=== PATIENT | female | born 1980 | race Hispanic/Latino ===

== ENCOUNTER 2020-08-05 12:53 | Inpatient (IN) | payer MEDICARE, OTHER ==
[~2020-08-05] VITALS: Ht 170.2 cm; Wt 264.7 kg
[2020-08-05 13:23] LABS: BASOPHILS % 0.3 % (0.0-1.0); EOSINOPHILS # (AUTO) 0.2 (0.0-0.4); EOSINOPHILS % 3.3 % (0.0-6.0); HEMATOCRIT 31.2 % (34.2-44.1); HEMOGLOBIN 9.1 g/dL (12.0-16.0); LYMPHOCYTES # (AUTO) 1.4 (1.0-3.2); LYMPHOCYTES % 21.6 % (18.0-39.1); MEAN CORPUSCULAR HEMOGLOBIN 30.4 pg (28-32); MEAN CORPUSCULAR HGB CONC 29.2 g/dL (31-35); MEAN CORPUSCULAR VOLUME 104.3 fL (81-99); MONOCYTES # (AUTO) 0.4 (0.2-0.8); MONOCYTES % 6.1 % (4.4-11.3); NEUTROPHILS # (AUTO) 4.5 (2.1-6.9); NEUTROPHILS % 68.1 % (38.7-80.0); PLATELET COUNT 151 x10e3/uL (140-360); RED BLOOD COUNT 2.99 x10e6/uL (3.6-5.1)
[2020-08-05 13:44] LABS: ALBUMIN 1.9 g/dL (3.5-5.0); ALBUMIN/GLOBULIN RATIO 0.5 (0.8-2.0); ANION GAP 14.2 mmol/L (8-16); CALCIUM 7.2 mg/dL (8.4-10.2); CREATININE, SERUM 4.53 mg/dL (0.57-1.11); MAGNESIUM 1.7 MG/DL (1.3-2.1)
[2020-08-05 13:47] LABS: POTASSIUM 6.2 mmol/L (3.5-5.1)
[2020-08-05] MEDS ORDERED: DEXTROSE 50% SYRINGE 50 ML IV STA (13:55)
[2020-08-05] MEDS ORDERED: SODIUM BICARBONATE 8.4% 50 ML VIAL IV STA (13:55)
[2020-08-05] MEDS ORDERED: SODIUM BICARBONATE 8.4% INJ 50 ML SYR IV ONE (14:00)
[2020-08-05] MEDS ORDERED: CALCIUM GLUCONATE 10% INJ 4.65 MEQ in SODIUM CHLORIDE 0.9% 50ML 50 ML IV ONE (14:00)
[2020-08-05] MEDS ORDERED: INSULIN REGULAR, HUMAN 100 UNIT/1 ML 3ML VIAL IV ONE (14:00)
[2020-08-05 14:42] LABS: CLARITY,URINE CLEAR (CLEAR); COLOR,URINE YELLOW (YELLOW); KETONES,URINE NEGATIVE (NEGATIVE); LEUKOCYTE ESTERASE ,URINE NEGATIVE (NEGATIVE); NITRITE,URINE NEGATIVE (NEGATIVE); PROTEIN,URINE DIPSTICK >=300 (NEGATIVE); URINE UROBILINOGEN 0.2 mg/dL (0.2 - 1)
[2020-08-05 14:53] LABS: BACTERIA,URINE MODERATE /HPF; EPITHELIAL CELLS,URINE MANY /LPF; WBC,URINE (MAN) 0-5 /HPF (0-5)
[2020-08-05] MEDS ORDERED: LIDOCAINE HCL 1% LOCAL INJ 20 ML VIAL ONE (15:19)
[2020-08-05] MEDS ORDERED: HEPARIN SOD (PORCINE) 1000 UNIT/ML SDV ONE (15:25)
[2020-08-05] MEDS ORDERED: SODIUM CHLORIDE 0.9% 250ML 500 ML IV PRN (16:30)
[2020-08-05] MEDS ORDERED: SODIUM CHLORIDE 0.9% 1000ML 2,000 ML IV PRN (16:30)
[2020-08-05] MEDS ORDERED: HEPARIN SOD (PORCINE) 1000 UNIT/ML SDV IV PRN (16:30)
[2020-08-05] MEDS ORDERED: MANNITOL 25% 12.5GM/50 ML VIAL IV PRN (16:30)
[2020-08-05 19:32] LABS: CREATINE KINASE MB 4.6 ng/mL (0-5.0)
[2020-08-05 20:00] VITALS: BP 154/74
[2020-08-05] MEDS: HYDRALAZINE HCL 25 MG TAB PO SCH (20:39)
[2020-08-05] MEDS ORDERED: SERTRALINE HCL100 MG PO (20:54)
[2020-08-05] MEDS ORDERED: CARVEDILOL12.5 MG PO (20:54)
[2020-08-05] MEDS ORDERED: DOXAZOSIN MESYLA2 MG PO (20:54)
[2020-08-05] MEDS ORDERED: AMLODIPINE BESY10 MG PO (20:54)
[2020-08-05] MEDS ORDERED: LOSARTAN POTAS100 MG PO (20:54)
[2020-08-05 21:00] VITALS: BP 200/83
[2020-08-05] MEDS ORDERED: DEXTROSE 5% 1,000 ML IV ONE (21:38)
[2020-08-05] MEDS ORDERED: SODIUM BICARBONATE 8.4% SYRING 50 ML ONE (21:38)
[2020-08-05] MEDS ORDERED: SODIUM BICARBONATE 8.4% SYRING 100 ML ONE (22:20)
[2020-08-05 22:21] VITALS: BP 203/74
[2020-08-05] MEDS: AMLODIPINE BESYLATE 10 MG TAB PO SCH (22:25)
[2020-08-05] MEDS: CARVEDILOL 12.5 MG TAB PO SCH (22:25)
[2020-08-05] MEDS: DOXAZOSIN MESYLATE 2 MG TAB PO SCH (22:25)
[2020-08-05 22:30] VITALS: BP 203/74
[2020-08-05] MEDS: SODIUM BICARBONATE 8.4% 150 ML in DEXTROSE 5% 1,000 ML IV SCH (22:40)
[2020-08-06] VITALS (8 sets, daily range): BP systolic 133–165; BP diastolic 48–68
[2020-08-06 06:04] LABS: BASOPHILS % 0.2 % (0.0-1.0); EOSINOPHILS # (AUTO) 0.3 (0.0-0.4); EOSINOPHILS % 4.6 % (0.0-6.0); HEMATOCRIT 25.4 % (34.2-44.1); HEMOGLOBIN 7.7 g/dL (12.0-16.0); LYMPHOCYTES # (AUTO) 1.5 (1.0-3.2); LYMPHOCYTES % 26.7 % (18.0-39.1); MEAN CORPUSCULAR HEMOGLOBIN 30.7 pg (28-32); MEAN CORPUSCULAR HGB CONC 30.3 g/dL (31-35); MEAN CORPUSCULAR VOLUME 101.2 fL (81-99); MONOCYTES # (AUTO) 0.5 (0.2-0.8); MONOCYTES % 8.4 % (4.4-11.3); NEUTROPHILS # (AUTO) 3.4 (2.1-6.9); NEUTROPHILS % 59.7 % (38.7-80.0); PLATELET COUNT 132 x10e3/uL (140-360); RED BLOOD COUNT 2.51 x10e6/uL (3.6-5.1)
[2020-08-06 06:21] LABS: ALBUMIN 1.6 g/dL (3.5-5.0); ALBUMIN/GLOBULIN RATIO 0.6 (0.8-2.0); ANION GAP 10.1 mmol/L (8-16); CREATININE, SERUM 3.6 mg/dL (0.57-1.11); POTASSIUM 5.1 mmol/L (3.5-5.1)
[2020-08-06 06:42] LABS: CREATINE KINASE MB 3.2 ng/mL (0-5.0)
[2020-08-06] MEDS: HYDRALAZINE HCL 25 MG TAB PO SCH ×3 (09:00→21:10)
[2020-08-06] MEDS: CARVEDILOL 12.5 MG TAB PO SCH ×2 (09:00→17:00)
[2020-08-06] MEDS ORDERED: LOSARTAN POTASSIUM 100 MG TAB PO SCH (09:00)
[2020-08-06] MEDS: SERTRALINE HCL 100 MG TAB PO SCH (09:00)
[2020-08-06 14:40] LABS: CREATINE KINASE MB 3.5 ng/mL (0-5.0)
[2020-08-06] MEDS: SODIUM BICARBONATE 650 MG TAB PO SCH (17:00)
[2020-08-06] MEDS: DOXAZOSIN MESYLATE 2 MG TAB PO SCH (21:10)
[2020-08-06] MEDS: AMLODIPINE BESYLATE 10 MG TAB PO SCH (21:10)
[2020-08-06] MEDS: ONDANSETRON HCL INJ 2MG/ML 2ML 2 MG/ML VIAL IV PRN (22:22)
[2020-08-06] MEDS ORDERED: SODIUM BICARBONATE 8.4% SYRING 150 ML ONE (22:55)
[2020-08-06] MEDS ORDERED: DEXTROSE 5% 1,000 ML IV ONE (22:55)
[2020-08-06] MEDS: SODIUM BICARBONATE 8.4% 150 ML in DEXTROSE 5% 1,000 ML IV SCH (23:06)
[2020-08-07] VITALS (9 sets, daily range): BP systolic 126–151; BP diastolic 52–78
[2020-08-07] MEDS: SODIUM BICARBONATE 8.4% 150 ML in DEXTROSE 5% 1,000 ML IV SCH ×2 (00:18→17:00)
[2020-08-07 06:53] LABS: BASOPHILS % 0.2 % (0.0-1.0); EOSINOPHILS # (AUTO) 0.2 (0.0-0.4); EOSINOPHILS % 4.3 % (0.0-6.0); HEMATOCRIT 25.8 % (34.2-44.1); HEMOGLOBIN 7.8 g/dL (12.0-16.0); LYMPHOCYTES # (AUTO) 1.4 (1.0-3.2); LYMPHOCYTES % 25.6 % (18.0-39.1); MEAN CORPUSCULAR HEMOGLOBIN 30.4 pg (28-32); MEAN CORPUSCULAR HGB CONC 30.2 g/dL (31-35); MEAN CORPUSCULAR VOLUME 100.4 fL (81-99); MONOCYTES # (AUTO) 0.4 (0.2-0.8); MONOCYTES % 7.8 % (4.4-11.3); NEUTROPHILS # (AUTO) 3.3 (2.1-6.9); NEUTROPHILS % 61.7 % (38.7-80.0); PLATELET COUNT 132 x10e3/uL (140-360); RED BLOOD COUNT 2.57 x10e6/uL (3.6-5.1)
[2020-08-07 07:16] LABS: ANION GAP 9.6 mmol/L (8-16); CREATININE, SERUM 3.09 mg/dL (0.57-1.11); POTASSIUM 4.6 mmol/L (3.5-5.1)
[2020-08-07 07:27] LABS: CALCIUM 6.9 mg/dL (8.4-10.2)
[2020-08-07] MEDS: HYDRALAZINE HCL 25 MG TAB PO SCH ×3 (09:22→21:08)
[2020-08-07] MEDS: CALCIUM CARBONATE 500 MG CHEWABLE TABS PO SCH ×2 (09:22→17:10)
[2020-08-07] MEDS: CARVEDILOL 12.5 MG TAB PO SCH ×2 (09:22→17:10)
[2020-08-07] MEDS: CALCITRIOL 0.25 MCG CAP PO SCH (09:22)
[2020-08-07] MEDS: SODIUM BICARBONATE 650 MG TAB PO SCH ×2 (09:22→17:10)
[2020-08-07] MEDS: SERTRALINE HCL 100 MG TAB PO SCH (09:22)
[2020-08-07] MEDS: ACETAMINOPHEN 325 MG TAB PO PRN ×2 (11:30→23:55)
[2020-08-07] MEDS: ONDANSETRON HCL INJ 2MG/ML 2ML 2 MG/ML VIAL IV PRN (18:59)
[2020-08-07] MEDS: AMLODIPINE BESYLATE 10 MG TAB PO SCH (21:08)
[2020-08-07] MEDS: DOXAZOSIN MESYLATE 2 MG TAB PO SCH (21:08)
[2020-08-08] VITALS (8 sets, daily range): BP systolic 121–149; BP diastolic 48–73
[2020-08-08 05:44] LABS: BASOPHILS % 0.2 % (0.0-1.0); EOSINOPHILS # (AUTO) 0.3 (0.0-0.4); EOSINOPHILS % 4.4 % (0.0-6.0); HEMATOCRIT 24.5 % (34.2-44.1); HEMOGLOBIN 7.3 g/dL (12.0-16.0); LYMPHOCYTES # (AUTO) 1.5 (1.0-3.2); LYMPHOCYTES % 25.3 % (18.0-39.1); MEAN CORPUSCULAR HEMOGLOBIN 30.3 pg (28-32); MEAN CORPUSCULAR HGB CONC 29.8 g/dL (31-35); MEAN CORPUSCULAR VOLUME 101.7 fL (81-99); MONOCYTES # (AUTO) 0.6 (0.2-0.8); MONOCYTES % 9.5 % (4.4-11.3); NEUTROPHILS # (AUTO) 3.6 (2.1-6.9); NEUTROPHILS % 59.9 % (38.7-80.0); PLATELET COUNT 126 x10e3/uL (140-360); RED BLOOD COUNT 2.41 x10e6/uL (3.6-5.1)
[2020-08-08 06:03] LABS: ANION GAP 10.5 mmol/L (8-16); CREATININE, SERUM 3.45 mg/dL (0.57-1.11); POTASSIUM 4.5 mmol/L (3.5-5.1)
[2020-08-08 06:06] LABS: CALCIUM 6.8 mg/dL (8.4-10.2)
[2020-08-08] MEDS ORDERED: CALCIUM GLUCONATE 10% INJ 4.65 MEQ in SODIUM CHLORIDE 0.9% 50ML 50 ML IV ONE (07:30)
[2020-08-08] MEDS: CARVEDILOL 12.5 MG TAB PO SCH ×2 (09:00→17:10)
[2020-08-08] MEDS: SERTRALINE HCL 100 MG TAB PO SCH (09:00)
[2020-08-08] MEDS: SODIUM BICARBONATE 650 MG TAB PO SCH ×2 (09:00→17:10)
[2020-08-08] MEDS: HYDRALAZINE HCL 25 MG TAB PO SCH ×3 (09:00→21:17)
[2020-08-08] MEDS: CALCITRIOL 0.25 MCG CAP PO SCH (09:00)
[2020-08-08] MEDS: CALCIUM CARBONATE 500 MG CHEWABLE TABS PO SCH ×2 (09:00→17:10)
[2020-08-08] MEDS: ONDANSETRON HCL INJ 2MG/ML 2ML 2 MG/ML VIAL IV PRN (12:45)
[2020-08-08 20:14] LABS: CLARITY,URINE HAZY (CLEAR); COLOR,URINE AMBER (YELLOW); LEUKOCYTE ESTERASE ,URINE NEGATIVE (NEGATIVE); NITRITE,URINE NEGATIVE (NEGATIVE); PROTEIN,URINE DIPSTICK >=300 (NEGATIVE)
[2020-08-08 20:15] LABS: KETONES,URINE NEGATIVE (NEGATIVE); URINE UROBILINOGEN 0.2 mg/dL (0.2 - 1)
[2020-08-08 20:24] LABS: BACTERIA,URINE MODERATE /HPF; EPITHELIAL CELLS,URINE MODERATE /LPF
[2020-08-08 20:53] LABS: CREATININE,URINE RANDOM 82.63 mg/dL (47-110)
[2020-08-08 21:14] LABS: TOTAL PROTEIN, URINE 815.7 mg/dL (1-14)
[2020-08-08] MEDS: DOXAZOSIN MESYLATE 2 MG TAB PO SCH (21:17)
[2020-08-08] MEDS: AMLODIPINE BESYLATE 10 MG TAB PO SCH (21:18)
[2020-08-08] MEDS: MELATONIN 5 MG TABLET PO SCH (23:14)
[2020-08-09] VITALS (7 sets, daily range): BP systolic 53–135; BP diastolic 54–83
[2020-08-09 08:42] LABS: ANION GAP 10.1 mmol/L (8-16); CREATININE, SERUM 3.14 mg/dL (0.57-1.11); POTASSIUM 4.1 mmol/L (3.5-5.1)
[2020-08-09 08:49] LABS: CALCIUM 5.9 mg/dL (8.4-10.2)
[2020-08-09] MEDS ORDERED: DEXTROSE 5%/0.225% SOD CHL 1,000 ML IV ONE (10:30)
[2020-08-09] MEDS: CALCIUM CARBONATE 500 MG CHEWABLE TABS PO SCH ×2 (10:55→18:26)
[2020-08-09] MEDS: SODIUM BICARBONATE 650 MG TAB PO SCH ×2 (10:55→18:26)
[2020-08-09] MEDS: CARVEDILOL 12.5 MG TAB PO SCH ×2 (10:55→18:26)
[2020-08-09] MEDS: CALCITRIOL 0.25 MCG CAP PO SCH (10:55)
[2020-08-09] MEDS: HYDRALAZINE HCL 25 MG TAB PO SCH ×3 (10:55→20:53)
[2020-08-09] MEDS: SERTRALINE HCL 100 MG TAB PO SCH (10:55)
[2020-08-09 11:03] LABS: % IRON SATURATION 16 % (15-50); IRON 24 ug/dL (50-170); TOTAL IRON BINDING CAPACITY 154 ug/dL (261-478); TRANSFERRIN 110 mg/dL (180-382)
[2020-08-09] MEDS: ONDANSETRON HCL INJ 2MG/ML 2ML 2 MG/ML VIAL IV PRN (15:14)
[2020-08-09] MEDS: DOXAZOSIN MESYLATE 2 MG TAB PO SCH (20:53)
[2020-08-09] MEDS: MELATONIN 5 MG TABLET PO SCH (20:53)
[2020-08-09] MEDS: AMLODIPINE BESYLATE 10 MG TAB PO SCH (20:53)
[2020-08-09] MEDS: ACETAMINOPHEN 325 MG TAB PO PRN (20:53)
[2020-08-10] VITALS (8 sets, daily range): BP systolic 106–144; BP diastolic 45–69
[2020-08-10 06:06] LABS: ALBUMIN 1.7 g/dL (3.5-5.0); ALBUMIN/GLOBULIN RATIO 0.6 (0.8-2.0); CALCIUM 7.1 mg/dL (8.4-10.2); CREATININE, SERUM 4.35 mg/dL (0.57-1.11)
[2020-08-10] MEDS: CARVEDILOL 12.5 MG TAB PO SCH ×2 (09:00→16:28)
[2020-08-10] MEDS: HYDRALAZINE HCL 25 MG TAB PO SCH ×3 (09:00→21:42)
[2020-08-10] MEDS: CALCITRIOL 0.25 MCG CAP PO SCH (09:10)
[2020-08-10] MEDS: SERTRALINE HCL 100 MG TAB PO SCH (09:10)
[2020-08-10] MEDS: CALCIUM CARBONATE 500 MG CHEWABLE TABS PO SCH ×2 (09:10→16:28)
[2020-08-10] MEDS: SODIUM BICARBONATE 650 MG TAB PO SCH ×2 (09:10→16:28)
[2020-08-10] MEDS: ACETAMINOPHEN 325 MG TAB PO PRN ×2 (10:45→22:26)
[2020-08-10] MEDS: IRON SUCROSE 100 MG in SODIUM CHLORIDE 0.9% 100 ML 100 ML IV SCH (16:26)
[2020-08-10 17:08] LABS: CALCIUM 7.3 mg/dL (8.4-10.2); CREATININE, SERUM 4.59 mg/dL (0.57-1.11)
[2020-08-10] MEDS ORDERED: MELATONIN 5 MG TABLET PO PRN (20:15)
[2020-08-10] MEDS ORDERED: HYDRALAZINE HCL 20 MG/ML VIAL IV PRN (20:15)
[2020-08-10] MEDS: MELATONIN 5 MG TABLET PO SCH (21:42)
[2020-08-10] MEDS: DOXAZOSIN MESYLATE 2 MG TAB PO SCH (21:42)
[2020-08-10] MEDS: AMLODIPINE BESYLATE 10 MG TAB PO SCH (21:43)
[2020-08-11] VITALS (8 sets, daily range): BP systolic 112–138; BP diastolic 51–66
[2020-08-11 05:55] LABS: BASOPHILS % 0.2 % (0.0-1.0); EOSINOPHILS # (AUTO) 0.3 (0.0-0.4); EOSINOPHILS % 4.3 % (0.0-6.0); HEMATOCRIT 24.3 % (34.2-44.1); HEMOGLOBIN 7.2 g/dL (12.0-16.0); LYMPHOCYTES # (AUTO) 1.3 (1.0-3.2); MEAN CORPUSCULAR HEMOGLOBIN 30.4 pg (28-32); MEAN CORPUSCULAR HGB CONC 29.6 g/dL (31-35); MEAN CORPUSCULAR VOLUME 102.5 fL (81-99); MONOCYTES # (AUTO) 0.5 (0.2-0.8); MONOCYTES % 8.7 % (4.4-11.3); NEUTROPHILS # (AUTO) 4.1 (2.1-6.9); NEUTROPHILS % 66.2 % (38.7-80.0); PLATELET COUNT 115 x10e3/uL (140-360); RED BLOOD COUNT 2.37 x10e6/uL (3.6-5.1); RED CELL DISTRIBUTION WIDTH 12.6 % (11.7-14.4)
[2020-08-11 06:15] LABS: ALBUMIN 1.7 g/dL (3.5-5.0); ALBUMIN/GLOBULIN RATIO 0.6 (0.8-2.0); ANION GAP 10.8 mmol/L (8-16); CREATININE, SERUM 4.74 mg/dL (0.57-1.11); POTASSIUM 4.8 mmol/L (3.5-5.1)
[2020-08-11] MEDS: SODIUM BICARBONATE 650 MG TAB PO SCH ×2 (08:55→18:43)
[2020-08-11] MEDS: CALCITRIOL 0.25 MCG CAP PO SCH (08:55)
[2020-08-11] MEDS: CALCIUM CARBONATE 500 MG CHEWABLE TABS PO SCH ×2 (08:55→18:43)
[2020-08-11] MEDS: SERTRALINE HCL 100 MG TAB PO SCH (08:56)
[2020-08-11] MEDS: HYDRALAZINE HCL 25 MG TAB PO SCH ×3 (09:00→21:28)
[2020-08-11] MEDS: CARVEDILOL 12.5 MG TAB PO SCH ×2 (10:02→18:44)
[2020-08-11 11:06] LABS: INR 0.91; PROTHROMBIN TIME 12.8 seconds (11.9-14.5)
[2020-08-11] MEDS ORDERED: SODIUM CHLORIDE 0.9% 250ML 250 ML ONE (14:06)
[2020-08-11] MEDS ORDERED: LIDOCAINE HCL 1% LOCAL INJ 20 ML VIAL ONE (14:06)
[2020-08-11] MEDS ORDERED: HEPARIN SOD (PORCINE) 1000 UNIT/ML SDV ONE (14:39)
[2020-08-11] MEDS ORDERED: MIDAZOLAM HCL 2 MG/2 ML VIAL ONE (14:39)
[2020-08-11] MEDS ORDERED: FENTANYL CITRATE/PF 100MCG/2 ML INJ ONE (14:40)
[2020-08-11] MEDS: IRON SUCROSE 100 MG in SODIUM CHLORIDE 0.9% 100 ML 100 ML IV SCH (15:00)
[2020-08-11] MEDS ORDERED: CEFAZOLIN SOD 1 GM/NS 50ML 50 ML IV ONE (15:16)
[2020-08-11] MEDS: AMLODIPINE BESYLATE 10 MG TAB PO SCH (21:28)
[2020-08-11] MEDS: DOXAZOSIN MESYLATE 2 MG TAB PO SCH (21:28)
[2020-08-11] MEDS: MELATONIN 5 MG TABLET PO SCH (21:28)
[2020-08-11] MEDS: ACETAMINOPHEN/CODEINE 300MG - 30MG TAB PO PRN (21:47)
[2020-08-12] VITALS (8 sets, daily range): BP systolic 109–135; BP diastolic 60–66
[2020-08-12 07:03] LABS: BASOPHILS % 0.2 % (0.0-1.0); EOSINOPHILS # (AUTO) 0.2 (0.0-0.4); EOSINOPHILS % 3.9 % (0.0-6.0); HEMATOCRIT 24.5 % (34.2-44.1); HEMOGLOBIN 7.3 g/dL (12.0-16.0); LYMPHOCYTES # (AUTO) 1.2 (1.0-3.2); LYMPHOCYTES % 20.4 % (18.0-39.1); MEAN CORPUSCULAR HEMOGLOBIN 30.7 pg (28-32); MEAN CORPUSCULAR HGB CONC 29.8 g/dL (31-35); MEAN CORPUSCULAR VOLUME 102.9 fL (81-99); MONOCYTES # (AUTO) 0.5 (0.2-0.8); MONOCYTES % 9.2 % (4.4-11.3); NEUTROPHILS # (AUTO) 3.8 (2.1-6.9); NEUTROPHILS % 65.8 % (38.7-80.0); PLATELET COUNT 111 x10e3/uL (140-360); RED BLOOD COUNT 2.38 x10e6/uL (3.6-5.1); RED CELL DISTRIBUTION WIDTH 12.6 % (11.7-14.4)
[2020-08-12 07:25] LABS: ANION GAP 8.7 mmol/L (8-16); CALCIUM 7.1 mg/dL (8.4-10.2); CREATININE, SERUM 3.54 mg/dL (0.57-1.11); POTASSIUM 4.7 mmol/L (3.5-5.1)
[2020-08-12] MEDS: HYDRALAZINE HCL 25 MG TAB PO SCH ×3 (09:00→21:45)
[2020-08-12] MEDS: SERTRALINE HCL 100 MG TAB PO SCH (09:30)
[2020-08-12] MEDS: CALCITRIOL 0.25 MCG CAP PO SCH (09:30)
[2020-08-12] MEDS: CARVEDILOL 12.5 MG TAB PO SCH ×2 (09:30→17:33)
[2020-08-12] MEDS: SODIUM BICARBONATE 650 MG TAB PO SCH ×2 (09:30→17:33)
[2020-08-12] MEDS: CALCIUM CARBONATE 500 MG CHEWABLE TABS PO SCH ×2 (09:30→17:33)
[2020-08-12] MEDS: IRON SUCROSE 100 MG in SODIUM CHLORIDE 0.9% 100 ML 100 ML IV SCH (14:00)
[2020-08-12] MEDS ORDERED: SODIUM CHLORIDE 0.9% 250ML 250 ML IV ONE (14:15)
[2020-08-12] MEDS: ACETAMINOPHEN/CODEINE 300MG - 30MG TAB PO PRN (17:34)
[2020-08-12] MEDS: MELATONIN 5 MG TABLET PO SCH (21:45)
[2020-08-12] MEDS: DOXAZOSIN MESYLATE 2 MG TAB PO SCH (21:45)
[2020-08-12] MEDS: AMLODIPINE BESYLATE 10 MG TAB PO SCH (21:46)
[2020-08-13] VITALS (8 sets, daily range): BP systolic 127–146; BP diastolic 58–74
[2020-08-13 06:38] LABS: BASOPHILS % 0.2 % (0.0-1.0); EOSINOPHILS # (AUTO) 0.3 (0.0-0.4); EOSINOPHILS % 4.9 % (0.0-6.0); HEMATOCRIT 23.3 % (34.2-44.1); LYMPHOCYTES # (AUTO) 1.2 (1.0-3.2); LYMPHOCYTES % 20.8 % (18.0-39.1); MEAN CORPUSCULAR HEMOGLOBIN 30.7 pg (28-32); MEAN CORPUSCULAR HGB CONC 29.6 g/dL (31-35); MEAN CORPUSCULAR VOLUME 103.6 fL (81-99); MONOCYTES # (AUTO) 0.6 (0.2-0.8); MONOCYTES % 10.6 % (4.4-11.3); NEUTROPHILS # (AUTO) 3.6 (2.1-6.9); NEUTROPHILS % 63.2 % (38.7-80.0); PLATELET COUNT 112 x10e3/uL (140-360); RED BLOOD COUNT 2.25 x10e6/uL (3.6-5.1); RED CELL DISTRIBUTION WIDTH 12.5 % (11.7-14.4)
[2020-08-13 06:50] LABS: HEMOGLOBIN 6.9 g/dL (12.0-16.0)
[2020-08-13 06:57] LABS: ANION GAP 10.6 mmol/L (8-16); CALCIUM 7.1 mg/dL (8.4-10.2); CREATININE, SERUM 3.69 mg/dL (0.57-1.11); POTASSIUM 4.6 mmol/L (3.5-5.1)
[2020-08-13] MEDS: CARVEDILOL 12.5 MG TAB PO SCH ×2 (09:00→16:13)
[2020-08-13] MEDS: SERTRALINE HCL 100 MG TAB PO SCH ×2 (09:00→14:26)
[2020-08-13] MEDS: CALCITRIOL 0.25 MCG CAP PO SCH (09:00)
[2020-08-13] MEDS: SODIUM BICARBONATE 650 MG TAB PO SCH ×2 (09:00→16:46)
[2020-08-13] MEDS: HYDRALAZINE HCL 25 MG TAB PO SCH ×3 (09:00→22:21)
[2020-08-13] MEDS: CALCIUM CARBONATE 500 MG CHEWABLE TABS PO SCH ×2 (09:00→16:46)
[2020-08-13] MEDS ORDERED: SODIUM BICARBO650 MG PO (09:40)
[2020-08-13] MEDS ORDERED: Calcium Carbonate 500MG Chew PO (09:40)
[2020-08-13] MEDS ORDERED: HYDRALAZINE HCL25 MG PO (09:40)
[2020-08-13] MEDS ORDERED: SODIUM CHLORIDE 0.9% 250ML 250 ML ONE (10:51)
[2020-08-13] MEDS: IRON SUCROSE 100 MG in SODIUM CHLORIDE 0.9% 100 ML 100 ML IV SCH (16:46)
[2020-08-13] MEDS: MELATONIN 5 MG TABLET PO SCH (22:21)
[2020-08-13] MEDS: DOXAZOSIN MESYLATE 2 MG TAB PO SCH (22:21)
[2020-08-13] MEDS: AMLODIPINE BESYLATE 10 MG TAB PO SCH (22:21)
[2020-08-13] MEDS: ACETAMINOPHEN 325 MG TAB PO PRN (23:23)
[2020-08-14] VITALS (8 sets, daily range): BP systolic 112–138; BP diastolic 56–72
[2020-08-14] MEDS: HYDRALAZINE HCL 25 MG TAB PO SCH ×3 (09:00→20:43)
[2020-08-14] MEDS: SODIUM BICARBONATE 650 MG TAB PO SCH ×2 (09:06→17:06)
[2020-08-14] MEDS: CALCIUM CARBONATE 500 MG CHEWABLE TABS PO SCH ×2 (09:06→17:06)
[2020-08-14] MEDS: CARVEDILOL 12.5 MG TAB PO SCH ×2 (09:06→17:06)
[2020-08-14] MEDS: CALCITRIOL 0.25 MCG CAP PO SCH (09:06)
[2020-08-14] MEDS: ACETAMINOPHEN/CODEINE 300MG - 30MG TAB PO PRN (12:58)
[2020-08-14] MEDS: IRON SUCROSE 100 MG in SODIUM CHLORIDE 0.9% 100 ML 100 ML IV SCH (13:51)
[2020-08-14] MEDS ORDERED: SODIUM CHLORIDE 0.9% 250ML 250 ML IV ONE (15:00)
[2020-08-14 17:03] LABS: HEMOGLOBIN 8.4 g/dL (12.0-16.0)
[2020-08-14] MEDS: AMLODIPINE BESYLATE 10 MG TAB PO SCH (20:43)
[2020-08-14] MEDS: MELATONIN 5 MG TABLET PO SCH (20:43)
[2020-08-14] MEDS: DOXAZOSIN MESYLATE 2 MG TAB PO SCH (20:43)
[2020-08-15 00:35] VITALS: BP 112/49
[2020-08-15 04:26] VITALS: BP 127/64
[2020-08-15 05:52] LABS: BASOPHILS % 0.3 % (0.0-1.0); EOSINOPHILS # (AUTO) 0.3 (0.0-0.4); EOSINOPHILS % 3.8 % (0.0-6.0); HEMATOCRIT 28.1 % (34.2-44.1); HEMOGLOBIN 8.4 g/dL (12.0-16.0); LYMPHOCYTES # (AUTO) 1.2 (1.0-3.2); LYMPHOCYTES % 17.4 % (18.0-39.1); MEAN CORPUSCULAR HEMOGLOBIN 30.3 pg (28-32); MEAN CORPUSCULAR HGB CONC 29.9 g/dL (31-35); MEAN CORPUSCULAR VOLUME 101.4 fL (81-99); MONOCYTES # (AUTO) 0.6 (0.2-0.8); MONOCYTES % 9.4 % (4.4-11.3); NEUTROPHILS # (AUTO) 4.6 (2.1-6.9); NEUTROPHILS % 68.4 % (38.7-80.0); PLATELET COUNT 121 x10e3/uL (140-360); RED BLOOD COUNT 2.77 x10e6/uL (3.6-5.1); RED CELL DISTRIBUTION WIDTH 12.9 % (11.7-14.4)
[2020-08-15 06:23] LABS: ANION GAP 10.1 mmol/L (8-16); CALCIUM 7.4 mg/dL (8.4-10.2); CREATININE, SERUM 3.51 mg/dL (0.57-1.11); POTASSIUM 4.1 mmol/L (3.5-5.1)
[2020-08-15] MEDS ORDERED: PANTOPRAZOLE SOD 40 MG TABEC PO SCH (07:30)
[2020-08-15 08:25] VITALS: BP 130/65
[2020-08-15 08:33] VITALS: BP 130/65
[2020-08-15] MEDS ORDERED: ONDANSETRON HCL 4 MG ORAL DISINTEGRATING TAB PO PRN (09:00)
[2020-08-15] MEDS: HYDRALAZINE HCL 25 MG TAB PO SCH ×2 (09:00→15:38)
[2020-08-15] MEDS: CARVEDILOL 12.5 MG TAB PO SCH ×2 (09:00→17:27)
[2020-08-15] MEDS: SERTRALINE HCL 100 MG TAB PO SCH (09:16)
[2020-08-15] MEDS: CALCITRIOL 0.25 MCG CAP PO SCH (09:16)
[2020-08-15] MEDS: SODIUM BICARBONATE 650 MG TAB PO SCH ×2 (09:16→17:27)
[2020-08-15] MEDS: CALCIUM CARBONATE 500 MG CHEWABLE TABS PO SCH ×2 (09:16→17:27)
[2020-08-15 12:48] VITALS: BP 158/75
[2020-08-15] MEDS ORDERED: BISACODYL 5 MG TAB EC PO ONE (13:30)
[2020-08-15] MEDS: IRON SUCROSE 100 MG in SODIUM CHLORIDE 0.9% 100 ML 100 ML IV SCH (15:54)
[2020-08-15] MEDS ORDERED: DOCUSATE SODIUM 100 MG CAP PO SCH (17:00)
[2020-08-15 18:22] VITALS: BP 141/64
== END 2020-08-15 18:27 | disposition home or self-care (01) | DRG 673 ==
LOC: ER 12:58 → ERHOLD 16:07 → MED/SURG3 18:10
PROVIDERS: ADMIT Internal Medicine; ATTEND Internal Medicine
PROC: 5A1D70Z Performance of Urinary Filtration, Intermittent, Less than 6 Hours Per Day (ICD-10-PCS; 2020-08-05)
PROC: 5A1D70Z Performance of Urinary Filtration, Intermittent, Less than 6 Hours Per Day (ICD-10-PCS; 2020-08-06)
PROC: 02PA33Z Removal of Infusion Device from Heart, Percutaneous Approach (ICD-10-PCS; principal; 2020-08-11)
PROC: 0JH63XZ Insertion of Tunneled Vascular Access Device into Chest Subcutaneous Tissue and Fascia, Percutaneous Approach (ICD-10-PCS; 2020-08-11)
PROC: 02HV33Z Insertion of Infusion Device into Superior Vena Cava, Percutaneous Approach (ICD-10-PCS; 2020-08-11)
PROC: B5181ZA Fluoroscopy of Superior Vena Cava using Low Osmolar Contrast, Guidance (ICD-10-PCS; 2020-08-11)
PROC: 5A1D70Z Performance of Urinary Filtration, Intermittent, Less than 6 Hours Per Day (ICD-10-PCS; 2020-08-11)
PROC: 5A1D70Z Performance of Urinary Filtration, Intermittent, Less than 6 Hours Per Day (ICD-10-PCS; 2020-08-13)
PROC: 30233N1 Transfusion of Nonautologous Red Blood Cells into Peripheral Vein, Percutaneous Approach (ICD-10-PCS; 2020-08-13)
DX: I12.0 Hypertensive chronic kidney disease with stage 5 chronic kidney disease or end stage renal disease (principal); N17.0 Acute kidney failure with tubular necrosis; N18.6 End stage renal disease; C81.90 Hodgkin lymphoma, unspecified, unspecified site; E87.0 Hyperosmolality and hypernatremia; Z68.45 Body mass index [BMI] 70 or greater, adult; E66.01 Morbid (severe) obesity due to excess calories; E11.22 Type 2 diabetes mellitus with diabetic chronic kidney disease; E88.09 Other disorders of plasma-protein metabolism, not elsewhere classified; Z20.822 Contact with and (suspected) exposure to COVID-19; D63.1 Anemia in chronic kidney disease; E66.1 Drug-induced obesity; E11.21 Type 2 diabetes mellitus with diabetic nephropathy; K59.00 Constipation, unspecified; E83.51 Hypocalcemia
CPT/HCPCS: 36415; 36556; 36558; 71045; 74470; 76770; 76937; 77001; 80048; 80053; 80061; 81001; 82550; 82553; 82570; 82607; 82728; 82746; 82948; 83036; 83516; 83540; 83735; 84156; 84466; 84484; 85014; 85018; 85025; 85610; 86021; 86160; 86225; 86235; 86255; 86256; 86376; 86431; 86704; 86705; 86706; 86707; 86850; 86900; 86920; 87086; 87340; 87350; 93005; 99251; 99284; C1752; C1769; C1892; J0610; J0690; J1644; J1756; J1817; J2001; J2150; J2250; J2405; J3010; J7030; J7050; J7070; J7799; P9016; U0002